=== PATIENT | female | born 1970 | race Caucasian/White ===

== ENCOUNTER 2018-04-04 11:30 | Emergency (ER) | END 2018-04-04 13:42 | disposition home or self-care (01) ==

== ENCOUNTER 2018-10-03 11:35 | Day surgery (SDC) | payer OTHER ==
[~2018-10-03] VITALS: Ht 157.5 cm; Wt 82.3 kg
[~2018-10-03 11:35] MED LIST: ATOR20TA38 PO; ERGO500013 PO; LISI2.5T59 PO; METF500T3 PO; METO-319 PO
[2018-10-03 12:23] VITALS: Ht 157.5 cm; Wt 82.3 kg
[2018-10-03 12:40] VITALS: BP 169/81; PULSE 93; RESP 20
--- NOTE | 2018-10-03 12:49 | PREAC ---
Date/Time of Note Date/Time of Note DATE: 10/03/18 TIME: 12:48 Anesthesia Eval and Record Evaluation Time Pre-Procedure Interview DATE: 10/03/18 TIME: 12:48 Age 48 Sex female NPO: 8 hrs Preoperative diagnosis ABD PAIN Planned procedure EGD Past Medical History Past Medical History: Includes Cardio: HTN GI: Obesity Surgery & Anesthesia Issues No known issue Meds Anticoagulation: No Beta Kathya within 24 hr: Yes Reported Medications Metoprolol Succinate* (Toprol XL*) 50 Mg Tab.er.24h, 50 MG PO DAILY, #30 TAB 04/04/18 Atorvastatin Calcium* (Atorvastatin Calcium*) 20 Mg Tablet, 20 MG PO QHS, #30 TAB 04/04/18 Lisinopril* (Lisinopril*) 2.5 Mg Tablet, 2.5 MG PO DAILY, #30 TAB 04/04/18 Ergocalciferol (Vitamin D2) (VITAMIN D2) 50,000 Unit Capsule, 15255 UNIT PO WEEKLY, CAP 04/04/18 Metformin Hcl* (Metformin Hcl* ER) 500 Mg Tab.sr.24h, 500 MG PO DAILY, #30 TAB 04/04/18 Meds reviewed: Yes Allergies Coded Allergies: No Known Allergy (Unverified , 04/04/18) Allergies Reviewed: Yes Labs/Studies Labs Reviewed: Reviewed by anesthesiologist test: Negative Pre-procedure Exam Airway: Adequate mouth opening, Adequate thyromental dist Mallampati: Mallampati II Teeth: Normal Lung: Normal Heart: Normal ASA Physical Status ASA physical status: 2 Emergency: None Planned Anesthetic General/MAC: MAC Planned Pain Management Parenteral pain med Pre-operative Attestations Prior to commencing anesthesia and surgery, the patient was re-evaluated, there was verification of: *The patient's identity *The results of appropriate recent lab work and preoperative vital signs *The above evaluation not changing prior to induction *Anesthetic plan, risk benefits, alternative and complications discussed with patient/family; questions answered; patient/family understands, accepts and wishes to proceed. ANN MARIE CORLEY Oct 03, 2018 12:49
[2018-10-03] MEDS ORDERED: PROPOFOL 40 ML ONE (12:50)
[2018-10-03] MEDS ORDERED: LIDOCAINE 2% (SDV) 5 ML INJ ONE (12:51)
[2018-10-03] MEDS ORDERED: OMEPRAZOLE PO (12:54)
[2018-10-03] MEDS ORDERED: ZOLOFT PO (12:54)
[2018-10-03] MEDS ORDERED: hydrALAzine 20 MG INJ IV PRN (13:00)
[2018-10-03] MEDS ORDERED: OXYCODONE/ACETAMINOPHEN (5/325) TAB PO PRN (13:00)
[2018-10-03] MEDS ORDERED: ONDANSETRON 4 MG INJ IV PRN (13:00)
[2018-10-03] MEDS ORDERED: LABETALOL HCL 20MG INJ IV PRN (13:00)
[2018-10-03] MEDS ORDERED: EPHEDrine SULFATE 50 MG/5 ML SYG IV PRN (13:00)
[2018-10-03] MEDS ORDERED: KETOROLAC 30 MG INJ IV PRN (13:00)
[2018-10-03 13:39] VITALS: BP 122/69; PULSE 77; RESP 18
--- NOTE | 2018-10-03 15:17 | PAC ---
Date/Time of Note Date/Time of Note DATE: 10/03/18 TIME: 15:17 Post-Anesthesia Notes Post-Anesthesia Note Last documented vital signs Vital Signs Date Temp Pulse Resp B/P (MAP) Pulse Ox O2 O2 Flow FiO2 Time Delivery Rate 10/03/18 98.0 77 18 122/69 94 Room Air 14:39 (86) Activity: WNL Respiratory function: WNL Cardiovascular function: WNL Mental status: Baseline Pain reasonably controlled: Yes Hydration appropriate: Yes Nausea/Vomiting absent: Yes ANN MARIE CORLEY Oct 03, 2018 15:17
== END 2018-10-03 14:10 | disposition home or self-care (01) ==
LOC: GIL 11:35
PROVIDERS: ATTEND Internal Medicine Gastroenterology
DX: K29.60 Other gastritis without bleeding (principal); E11.9 Type 2 diabetes mellitus without complications; I10 Essential (primary) hypertension
CPT/HCPCS: 43239; 82962; 88305; Z7610